=== PATIENT | male | born 1970 | race Hispanic/Latino ===

== ENCOUNTER 2020-03-20 22:14 | Emergency (ER) | payer OTHER ==
[2020-03-20] MEDS ORDERED: ONDANSETRON HCL 4 MG/2 ML VIAL ONE (23:10)
[2020-03-20] MEDS ORDERED: MORPHINE SULFATE 4 MG/1ML SYG ONE (23:10)
[2020-03-20 23:51] LABS: BASOPHILS % (AUTO) 0.5 % (0.0-5.0); EOSINOPHILS % (AUTO) 0.1 % (0.0-8.0); HEMATOCRIT 43.6 % (42-54); LYMPHOCYTES % (AUTO) 19.2 % (21.0-51.0); MEAN CORPUSCULAR HGB CONC 34.9 g/dL (32.0-36.0); MEAN CORPUSCULAR VOLUME 88.8 fL (79-99); MONOCYTES % (AUTO) 4.2 % (3.0-13.0); NEUTROPHILS % (AUTO) 75.5 % (40.0-77.0); PLATELET COUNT (AUTO) 232 K/uL (130-400); RED BLOOD CELL COUNT(AUTO) 4.91 MIL/uL (4.50-6.20); RED CELL DISTRIBUTION WIDTH 13.9 % (11.0-15.5)
[2020-03-20] MEDS ORDERED: 0.9% SODIUM CHLORIDE 1000 ML IV BAG IV ONE (23:58)
[2020-03-21 00:03] LABS: POTASSIUM 3.6 mmol/L (3.5-5.1)
[2020-03-21 00:07] LABS: ALBUMIN 3.6 g/dL (3.5-5.0); BILIRUBIN,TOTAL 0.5 mg/dL (0.2-1.0); TOTAL PROTEIN, SERUM 7.3 g/dL (6.0-8.3)
[2020-03-21] MEDS ORDERED: INSULIN HUMULIN R 100 UNIT/ML 3ML ONE (00:27)
[2020-03-21 00:52] LABS: AMPHET/METH SCREEN,URINE NEGATIVE (NEGATIVE); BARBITURATE SCREEN, URINE NEGATIVE (NEGATIVE); BENZODIAZEPINES SCREEN,URINE NEGATIVE (NEGATIVE); CANNABINOID SCREEN,URINE NEGATIVE (NEGATIVE); COCAINE SCREEN,URINE NEGATIVE (NEGATIVE); OPIATE SCREEN,URINE NEGATIVE (NEGATIVE); PHENCYCLIDINE SCREEN,URINE NEGATIVE (NEGATIVE)
== END 2020-03-21 01:00 ==
LOC: EDH 22:14
DX: S13.9XXA Sprain of joints and ligaments of unspecified parts of neck, initial encounter (principal); S09.90XA Unspecified injury of head, initial encounter; F10.229 Alcohol dependence with intoxication, unspecified; M54.9 Dorsalgia, unspecified; V49.49XA Driver injured in collision with other motor vehicles in traffic accident, initial encounter; Y93.89 Activity, other specified; Y92.89 Other specified places as the place of occurrence of the external cause; Y99.8 Other external cause status
CPT/HCPCS: 36415; 70450; 71045; 72125; 72128; 72131; 72170; 80053; 80305; 82550; 85025; 93005; 96361; 96374; 96375 ×2; 99285; J1815; J2270; J2405; J7030

== ENCOUNTER 2020-08-15 10:26 | Inpatient (IN) | payer OTHER, SELFPAY ==
[~2020-08-15] VITALS: Ht 175.3 cm; Wt 102.7 kg
[2020-08-15 10:52] LABS: BASOPHILS % (AUTO) 0.5 % (0.0-5.0); EOSINOPHILS % (AUTO) 0.1 % (0.0-8.0); HEMATOCRIT 43.2 % (42-54); LYMPHOCYTES % (AUTO) 15.9 % (21.0-51.0); MEAN CORPUSCULAR HEMOGLOBIN 34.3 pg (27.0-33.0); MEAN CORPUSCULAR HGB CONC 39.1 g/dL (32.0-36.0); MEAN CORPUSCULAR VOLUME 87.6 fL (79-99); MONOCYTES % (AUTO) 7.7 % (3.0-13.0); NEUTROPHILS % (AUTO) 75.5 % (40.0-77.0); PLATELET COUNT (AUTO) 209 K/uL (130-400); RED BLOOD CELL COUNT(AUTO) 4.93 MIL/uL (4.50-6.20); RED CELL DISTRIBUTION WIDTH 13.5 % (11.0-15.5); WHITE BLOOD COUNT (AUTO) 12.8 K/uL (4.8-10.8)
[2020-08-15 11:09] LABS: APPEARANCE,URINE Clear (CLEAR); BILIRUBIN,URINE Negative (NEGATIVE); COLOR,URINE Yellow (YELLOW); GLUCOSE, URINE (UA) >=1000 mg/dL (NEGATIVE); KETONES,URINE >=160 mg/dL (NEGATIVE); LEUKOCYTE ESTERASE ,URINE Negative (NEGATIVE); NITRATE,URINE Negative (NEGATIVE); OCCULT BLOOD,URINE Negative (NEGATIVE); PROTEIN,URINE Negative (NEGATIVE); UROBILINOGEN,URINE 0.2 mg/dL (0.2-1.0)
[2020-08-15 11:30] LABS: BACTERIA,URINE None Seen /HPF (None Seen); RBC,URINE None Seen /HPF (0-1); SQUAMOUS EPITHELIAL CELL,UR 0-2 /HPF (0-2); WBC,URINE None Seen /HPF (0-1)
[2020-08-15 11:51] LABS: TOTAL PROTEIN, SERUM 6.8 g/dL (6.0-8.3)
[2020-08-15 11:53] LABS: CREATININE 0.8 mg/dL (0.5-1.5)
[2020-08-15 11:54] LABS: POTASSIUM 3.8 mmol/L (3.5-5.1)
[2020-08-15 12:12] LABS: BILIRUBIN,TOTAL 2.2 mg/dL (0.2-1.0)
[2020-08-15] MEDS ORDERED: ONDANSETRON 4MG INJ ONE ×2 (12:13→21:25)
[2020-08-15] MEDS ORDERED: 0.9%NACL 1000ML 3,000 ML IV ONE (12:13)
[2020-08-15] MEDS ORDERED: IOHEXOL-350 75 ML VIAL IV ONE (12:37)
[2020-08-15] MEDS ORDERED: DICYCLOMINE 20MG (10MG/ML) AMP IM ONE (12:39)
[2020-08-15] MEDS ORDERED: ZOSYN 3.375GM+NS 50ML 50 ML IV ONE ×2 (13:50→20:38)
[2020-08-15 14:36] LABS: LDL DIRECT 149 mg/dL (0-99)
[2020-08-15 15:18] LABS: CHOLESTEROL 621 mg/dL (<200); HDL CHOLESTEROL 574 mg/dL (29-71); TRIGLYCERIDES 4206 mg/dL (30-200)
[2020-08-15 15:53] LABS: ABG BASE EXCESS -12.4 mmol/L (-2.0-3.0); ABG HCO3 12.4 mmol/L (21.0-28.0); ABG OXYGEN SATURATION 96.4 % (95.0-99.0); ABG PCO2 27 mmHg (35-48)
[2020-08-15] MEDS ORDERED: MORPHINE 4 MG SYG ONE (16:38)
[2020-08-15] MEDS ORDERED: MORPHINE 2 MG SYG IV PRN (17:00)
[2020-08-15] MEDS ORDERED: 0.9%NACL 1000ML 1,000 ML IV SCH (17:00)
[2020-08-15] MEDS ORDERED: ACETAMINOPHEN 325 MG TAB PO PRN ×2 (17:00)
[2020-08-15] MEDS ORDERED: INSULIN HUMULIN R 100 UNIT/ML 3ML SQ SCH ×2 (18:00)
[2020-08-15] MEDS ORDERED: INSULIN REGULAR, HUMAN 3ML 100 UNIT in 0.9%NACL 100ML 99 ML IV PRN ×2 (18:00)
[2020-08-15 18:39] LABS: POTASSIUM 4.1 mmol/L (3.5-5.1)
[2020-08-15 18:44] LABS: PROTHROMBIN TIME 10.9 SEC (9.6-11.6)
[2020-08-15] MEDS ORDERED: DEXTROSE 5 % AND 0.9 % NACL 1,000 ML IV ONE (18:47)
[2020-08-15 19:16] LABS: CREATININE 0.7 mg/dL (0.5-1.5)
[2020-08-15] MEDS: ZOSYN 3.375GM+NS 50ML 50 ML IV SCH (21:00)
[2020-08-15] MEDS ORDERED: METRONIDAZOLE 500 MG TABLET PO SCH (21:00)
[2020-08-15 22:38] LABS: POTASSIUM 4.1 mmol/L (3.5-5.1)
[2020-08-15 22:41] LABS: MAGNESIUM 2.2 mg/dL (1.80-2.40); PHOSPHORUS 3.1 mg/dL (2.5-4.9)
[2020-08-15 22:46] LABS: CREATININE 0.8 mg/dL (0.5-1.5)
[2020-08-16] VITALS (10 sets, daily range): BP systolic 122–148; BP diastolic 79–99
[2020-08-16] MEDS ORDERED: ONDANSETRON 4MG INJ ONE ×4 (00:07→19:42)
[2020-08-16] MEDS ORDERED: MORPHINE 2 MG SYG ONE (00:09)
[2020-08-16 00:53] LABS: POTASSIUM 4.1 mmol/L (3.5-5.1)
[2020-08-16 01:45] LABS: CREATININE 0.8 mg/dL (0.5-1.5)
[2020-08-16 02:16] LABS: PARTIAL THROMBOPLASTIN TIME 28.2 SEC (26.3-35.5)
[2020-08-16 04:14] LABS: BASOPHILS % (AUTO) 0.3 % (0.0-5.0); EOSINOPHILS % (AUTO) 0.1 % (0.0-8.0); HEMATOCRIT 43.2 % (42-54); LYMPHOCYTES % (AUTO) 18.5 % (21.0-51.0); MEAN CORPUSCULAR HEMOGLOBIN 31.9 pg (27.0-33.0); MEAN CORPUSCULAR HGB CONC 35.4 g/dL (32.0-36.0); NEUTROPHILS % (AUTO) 75.7 % (40.0-77.0); PLATELET COUNT (AUTO) 215 K/uL (130-400); RED CELL DISTRIBUTION WIDTH 14.1 % (11.0-15.5); WHITE BLOOD COUNT (AUTO) 10.6 K/uL (4.8-10.8)
[2020-08-16 04:48] LABS: BILIRUBIN,TOTAL 1.1 mg/dL (0.2-1.0); CREATININE 0.8 mg/dL (0.5-1.5); POTASSIUM 4.1 mmol/L (3.5-5.1)
[2020-08-16] MEDS: ZOSYN 3.375GM+NS 50ML 50 ML IV SCH ×3 (05:00→21:00)
[2020-08-16 05:35] LABS: ALBUMIN 3.5 g/dL (3.5-5.0); TOTAL PROTEIN, SERUM 6.4 g/dL (6.0-8.3)
[2020-08-16] MEDS ORDERED: ZOSYN 3.375GM+NS 50ML 50 ML IV ONE ×2 (07:28→13:07)
[2020-08-16] MEDS ORDERED: DEXTROSE 5 % AND 0.9 % NACL 1,000 ML IV ONE (07:41)
[2020-08-16] MEDS ORDERED: HYDROMORPHONE 0.5 MG SYG (0.5MG/0.5ML) ONE ×3 (08:15→19:49)
[2020-08-16] MEDS ORDERED: ATORVASTATIN 40 MG TABLET ONE (08:25)
[2020-08-16] MEDS ORDERED: ENOXAPARIN SODIUM 30 MG/0.3 ML SQ ONE (08:26)
[2020-08-16] MEDS ORDERED: DEXTROSE 5%-LACTATED RINGERS 1,000 ML IV ONE ×2 (08:36→19:50)
[2020-08-16] MEDS: DEXTROSE 5%-LACTATED RINGERS 1,000 ML IV SCH ×3 (08:45→20:11)
[2020-08-16] MEDS: ATORVASTATIN 40 MG TABLET PO SCH (09:00)
[2020-08-16] MEDS: FENOFIBRATE NANOCRYSTALLIZED 145 MG TAB PO SCH (09:00)
[2020-08-16] MEDS: ENOXAPARIN SODIUM 30 MG/0.3 ML SQ SCH (09:00)
[2020-08-16 10:15] LABS: CREATININE 0.5 mg/dL (0.5-1.5)
[2020-08-16] MEDS ORDERED: FENOFIBRATE NANOCRYSTALLIZED 145 MG TAB PO SCH (15:00)
[2020-08-16 16:09] LABS: POTASSIUM 3.8 mmol/L (3.5-5.1)
[2020-08-16 16:20] LABS: CREATININE 0.7 mg/dL (0.5-1.5)
[2020-08-16] MEDS ORDERED: PROCHLORPERAZINE 10MG/2ML INJ IV PRN (19:45)
[2020-08-16 22:36] LABS: CREATININE 0.9 mg/dL (0.5-1.5); POTASSIUM 4.2 mmol/L (3.5-5.1)
[2020-08-17] VITALS (16 sets, daily range): BP systolic 124–156; BP diastolic 67–99
[2020-08-17] MEDS: DEXTROSE 5%-LACTATED RINGERS 1,000 ML IV SCH ×4 (00:35→17:35)
[2020-08-17] MEDS: HYDROMORPHONE 0.5 MG SYG (0.5MG/0.5ML) IV PRN ×3 (00:41→04:48)
[2020-08-17 03:34] LABS: BASOPHILS % (AUTO) 0.2 % (0.0-5.0); HEMATOCRIT 44.3 % (42-54); LYMPHOCYTES % (AUTO) 14.8 % (21.0-51.0); MEAN CORPUSCULAR HEMOGLOBIN 30.6 pg (27.0-33.0); MEAN CORPUSCULAR HGB CONC 34.8 g/dL (32.0-36.0); MEAN CORPUSCULAR VOLUME 88.1 fL (79-99); NEUTROPHILS % (AUTO) 77.5 % (40.0-77.0); PLATELET COUNT (AUTO) 242 K/uL (130-400); RED BLOOD CELL COUNT(AUTO) 5.03 MIL/uL (4.50-6.20); RED CELL DISTRIBUTION WIDTH 14.3 % (11.0-15.5)
[2020-08-17 03:42] LABS: HEMOGLOBIN A1C 11.1 % (4.0-6.0)
[2020-08-17 03:53] LABS: POTASSIUM 3.4 mmol/L (3.5-5.1)
[2020-08-17] MEDS: ZOSYN 3.375GM+NS 50ML 50 ML IV SCH ×3 (04:48→21:49)
[2020-08-17 05:28] LABS: TOTAL PROTEIN, SERUM 6.1 g/dL (6.0-8.3)
[2020-08-17 06:00] LABS: URIC ACID 9.7 mg/dL (2.6-7.2)
[2020-08-17 06:37] LABS: APPEARANCE,URINE Clear (CLEAR); BILIRUBIN,URINE Negative (NEGATIVE); COLOR,URINE Yellow (YELLOW); GLUCOSE, URINE (UA) >=1000 mg/dL (NEGATIVE); KETONES,URINE >=160 mg/dL (NEGATIVE); LEUKOCYTE ESTERASE ,URINE Negative (NEGATIVE); NITRATE,URINE Negative (NEGATIVE); OCCULT BLOOD,URINE Small (NEGATIVE); PROTEIN,URINE POS 1+ mg/dL (NEGATIVE); UROBILINOGEN,URINE 0.2 mg/dL (0.2-1.0)
[2020-08-17 06:43] LABS: SODIUM,URINE RANDOM 25 mmol/l (40-220)
[2020-08-17 07:25] LABS: BACTERIA,URINE Few /HPF (None Seen); RBC,URINE None Seen /HPF (0-1); WBC,URINE None Seen /HPF (0-1); YEAST,URINE BUDDING Few /HPF (None Seen)
[2020-08-17 07:26] LABS: SQUAMOUS EPITHELIAL CELL,UR 0-2 /HPF (0-2)
[2020-08-17] MEDS ORDERED: PHARMACY COMMUNICATION MISC SCH (08:30)
[2020-08-17] MEDS ORDERED: D5LR-20 MEQ KCL 1000ML BAG IV SCH (08:30)
[2020-08-17] MEDS: FENOFIBRATE NANOCRYSTALLIZED 145 MG TAB PO SCH (09:00)
[2020-08-17] MEDS: ATORVASTATIN 40 MG TABLET PO SCH (09:00)
[2020-08-17] MEDS: POTASSIUM CHLORIDE 20MEQ/10ML 40 MEQ in DEXTROSE 5%-LACTATED RINGERS 1,000 ML IV SCH ×3 (09:42→21:49)
[2020-08-17] MEDS: ENOXAPARIN SODIUM 30 MG/0.3 ML SQ SCH (09:47)
[2020-08-17 11:30] LABS: POTASSIUM 3.5 mmol/L (3.5-5.1)
[2020-08-17 11:36] LABS: CREATININE 0.7 mg/dL (0.5-1.5)
[2020-08-17 17:19] LABS: CREATININE 0.9 mg/dL (0.5-1.5); POTASSIUM 3.3 mmol/L (3.5-5.1)
[2020-08-17] MEDS: ONDANSETRON 4MG INJ IV PRN (22:14)
[2020-08-17 22:47] LABS: CREATININE 0.9 mg/dL (0.5-1.5); POTASSIUM 3.1 mmol/L (3.5-5.1)
[2020-08-18] VITALS (19 sets, daily range): BP systolic 105–156; BP diastolic 67–100
[2020-08-18] MEDS: DEXTROSE 5%-LACTATED RINGERS 1,000 ML IV SCH ×7 (00:46→19:43)
[2020-08-18] MEDS: POTASSIUM CHLORIDE 20MEQ/10ML 40 MEQ in DEXTROSE 5%-LACTATED RINGERS 1,000 ML IV SCH ×4 (01:40→18:36)
[2020-08-18] MEDS: HYDROMORPHONE 0.5 MG SYG (0.5MG/0.5ML) IV PRN ×2 (02:20→18:38)
[2020-08-18 03:37] LABS: BASOPHILS % (AUTO) 0.4 % (0.0-5.0); EOSINOPHILS % (AUTO) 0.7 % (0.0-8.0); HEMATOCRIT 37.4 % (42-54); LYMPHOCYTES % (AUTO) 24.7 % (21.0-51.0); MEAN CORPUSCULAR HEMOGLOBIN 30.2 pg (27.0-33.0); MEAN CORPUSCULAR HGB CONC 35.3 g/dL (32.0-36.0); MEAN CORPUSCULAR VOLUME 85.6 fL (79-99); MONOCYTES % (AUTO) 7.7 % (3.0-13.0); NEUTROPHILS % (AUTO) 66.4 % (40.0-77.0); PLATELET COUNT (AUTO) 195 K/uL (130-400); RED BLOOD CELL COUNT(AUTO) 4.37 MIL/uL (4.50-6.20); RED CELL DISTRIBUTION WIDTH 13.9 % (11.0-15.5); WHITE BLOOD COUNT (AUTO) 7.6 K/uL (4.8-10.8)
[2020-08-18 04:12] LABS: POTASSIUM 3.3 mmol/L (3.5-5.1)
[2020-08-18 04:13] LABS: CREATININE 0.7 mg/dL (0.5-1.5)
[2020-08-18 04:14] LABS: BILIRUBIN,TOTAL 0.6 mg/dL (0.2-1.0); MAGNESIUM 1.9 mg/dL (1.80-2.40)
[2020-08-18 04:15] LABS: ALBUMIN 2.5 g/dL (3.5-5.0); TOTAL PROTEIN, SERUM 4.9 g/dL (6.0-8.3)
[2020-08-18] MEDS: ZOSYN 3.375GM+NS 50ML 50 ML IV SCH ×3 (05:34→20:13)
[2020-08-18] MEDS: ONDANSETRON 4MG INJ IV PRN ×2 (07:23→18:26)
[2020-08-18] MEDS: ATORVASTATIN 40 MG TABLET PO SCH (08:27)
[2020-08-18] MEDS: FENOFIBRATE NANOCRYSTALLIZED 145 MG TAB PO SCH (08:27)
[2020-08-18] MEDS ORDERED: POTASSIUM CHLORIDE 10MEQ/100ML 100 ML IV PRN (08:45)
[2020-08-18] MEDS: ENOXAPARIN SODIUM 30 MG/0.3 ML SQ SCH (08:49)
[2020-08-18 10:41] LABS: CREATININE 0.7 mg/dL (0.5-1.5); POTASSIUM 3.4 mmol/L (3.5-5.1)
[2020-08-18] MEDS ORDERED: TEMAZEPAM 7.5 MG CAPSULE PO PRN (15:30)
[2020-08-18 17:26] LABS: CREATININE 0.8 mg/dL (0.5-1.5)
[2020-08-18] MEDS: POTASSIUM CHLORIDE 10MEQ/100ML 100 ML IV PRN (17:41)
[2020-08-18] MEDS ORDERED: KCL 20 MEQ ERTAB PO SCH (17:45)
[2020-08-18 23:42] LABS: POTASSIUM 3.5 mmol/L (3.5-5.1)
[2020-08-19] VITALS (19 sets, daily range): BP systolic 105–167; BP diastolic 70–100
[2020-08-19 00:01] LABS: CREATININE 0.7 mg/dL (0.5-1.5)
[2020-08-19] MEDS: DEXTROSE 5%-LACTATED RINGERS 1,000 ML IV SCH ×5 (01:57→11:28)
[2020-08-19 03:39] LABS: BASOPHILS % (AUTO) 0.8 % (0.0-5.0); EOSINOPHILS % (AUTO) 3.3 % (0.0-8.0); HEMATOCRIT 36.5 % (42-54); LYMPHOCYTES % (AUTO) 32.1 % (21.0-51.0); MEAN CORPUSCULAR HGB CONC 33.7 g/dL (32.0-36.0); MEAN CORPUSCULAR VOLUME 86.1 fL (79-99); MONOCYTES % (AUTO) 7.9 % (3.0-13.0); NEUTROPHILS % (AUTO) 55.7 % (40.0-77.0); PLATELET COUNT (AUTO) 164 K/uL (130-400); RED BLOOD CELL COUNT(AUTO) 4.24 MIL/uL (4.50-6.20); RED CELL DISTRIBUTION WIDTH 13.9 % (11.0-15.5); WHITE BLOOD COUNT (AUTO) 5.2 K/uL (4.8-10.8)
[2020-08-19 04:00] LABS: ALBUMIN 2.3 g/dL (3.5-5.0); BILIRUBIN,TOTAL 0.6 mg/dL (0.2-1.0); CREATININE 0.6 mg/dL (0.5-1.5); POTASSIUM 3.3 mmol/L (3.5-5.1); TOTAL PROTEIN, SERUM 6.1 g/dL (6.0-8.3)
[2020-08-19] MEDS: ZOSYN 3.375GM+NS 50ML 50 ML IV SCH (04:15)
[2020-08-19] MEDS: FENOFIBRATE NANOCRYSTALLIZED 145 MG TAB PO SCH (07:54)
[2020-08-19] MEDS: ATORVASTATIN 40 MG TABLET PO SCH (07:54)
[2020-08-19] MEDS: POTASSIUM CHLORIDE 10MEQ/100ML 100 ML IV PRN ×2 (08:30→11:35)
[2020-08-19] MEDS: ENOXAPARIN SODIUM 30 MG/0.3 ML SQ SCH (08:33)
[2020-08-19] MEDS ORDERED: INSULIN GLARGINE 100 UNITS/ML 10 ML VIAL SQ SCH (08:34)
[2020-08-19] MEDS: ONDANSETRON 4MG INJ IV PRN (10:39)
[2020-08-19] MEDS: INSULIN HUMULIN R 100 UNIT/ML 3ML SQ SCH ×3 (11:27→20:42)
[2020-08-19 17:24] LABS: CREATININE 0.5 mg/dL (0.5-1.5); POTASSIUM 3.3 mmol/L (3.5-5.1)
[2020-08-20 04:00] VITALS: BP 130/90
[2020-08-20] MEDS: INSULIN HUMULIN R 100 UNIT/ML 3ML SQ SCH ×2 (05:49→12:34)
[2020-08-20 06:13] LABS: CREATININE 0.6 mg/dL (0.5-1.5); POTASSIUM 3.1 mmol/L (3.5-5.1)
[2020-08-20] MEDS ORDERED: POTASSIUM CHLORIDE 20MEQ/100ML 100 ML IV PRN (06:45)
[2020-08-20] MEDS ORDERED: POTASSIUM CHLORIDE 10% ELIXIR 20 MEQ/15 ML UDCUP PO PRN (06:45)
[2020-08-20] MEDS ORDERED: LIDOCAINE HCL-MPF 1% 2ML VIAL IV PRN (06:45)
[2020-08-20] MEDS: KCL 20 MEQ ERTAB PO PRN ×2 (06:47→08:29)
[2020-08-20 08:14] VITALS: BP 140/73
[2020-08-20] MEDS: ATORVASTATIN 40 MG TABLET PO SCH (08:18)
[2020-08-20] MEDS: ENOXAPARIN SODIUM 30 MG/0.3 ML SQ SCH (08:18)
[2020-08-20] MEDS: FENOFIBRATE NANOCRYSTALLIZED 145 MG TAB PO SCH (08:24)
[2020-08-20] MEDS ORDERED: FENO145T PO (09:21)
[2020-08-20] MEDS ORDERED: ATOR40TA69 PO (09:21)
[2020-08-20] MEDS ORDERED: INSULIN GLARGINE 100 UNITS/ML 10 ML VIAL SQ SCH (10:00)
[2020-08-20 12:01] VITALS: BP 132/96
== END 2020-08-20 13:00 | disposition home or self-care (01) | DRG 438 ==
LOC: EDH 10:26 → EDHIP 10:27 → 2DH 08-16 20:56 → 3AH 08-19 21:34
PROVIDERS: ADMIT Internal Medicine; ATTEND Internal Medicine
DX: K85.90 Acute pancreatitis without necrosis or infection, unspecified (principal); E11.10 Type 2 diabetes mellitus with ketoacidosis without coma; K65.9 Peritonitis, unspecified; E87.1 Hypo-osmolality and hyponatremia; E86.1 Hypovolemia; K57.90 Diverticulosis of intestine, part unspecified, without perforation or abscess without bleeding; E66.01 Morbid (severe) obesity due to excess calories; E78.1 Pure hyperglyceridemia; E78.5 Hyperlipidemia, unspecified; E86.0 Dehydration; E87.6 Hypokalemia; G47.00 Insomnia, unspecified; I10 Essential (primary) hypertension; M47.815 Spondylosis without myelopathy or radiculopathy, thoracolumbar region; Z20.822 Contact with and (suspected) exposure to COVID-19; N19 Unspecified kidney failure; Z91.19 Patient's noncompliance with other medical treatment and regimen
CPT/HCPCS: 36415; 36600; 71045; 74177; 80048; 80053; 80061; 81001; 82010; 82803; 82948; 83036; 83690; 83735; 83935; 84100; 84300; 84478; 84484; 84550; 85025; 85610; 85651; 85730; 86140; 87040; 87426; 93005; 99291; G0378; J0500; J1170; J1650; J1815; J2270; J2405; J2543; J3480; J3490; J7030; J7042; Q9967; U0003